=== PATIENT | female | born 1935 | race Caucasian/White ===

== ENCOUNTER → 2017-03-29 | Outpatient (REF) | payer MEDICARE, OTHER ==
[~2017-03-29] MED LIST: CELE-1 PO; CYCL1DRO6 OP; DEN60I SUBQ; LEVO100T95 PO; LEVO50TA80 PO; NIT3 SL; NITR0.4T3 SL
== END ==
LOC: ZZSENDIN 12:00
PROVIDERS: ATTEND Urology
DX: C67.9 Malignant neoplasm of bladder, unspecified (principal)
CPT/HCPCS: 88108

== ENCOUNTER → 2017-07-19 | Outpatient (CLI) | payer MEDICARE, OTHER | LOC: LAB 14:39 | PROVIDERS: ATTEND Urology | DX: N39.0 Urinary tract infection, site not specified (principal); R82.79 Other abnormal findings on microbiological examination of urine | CPT/HCPCS: 81001; 87077; 87088; 87186 ==

== ENCOUNTER 2018-10-11 10:45 | Emergency (ER) | payer MEDICARE, OTHER ==
--- NOTE | 2018-10-11 11:11 | ER Report ---
History and Physical Time Seen By MD: 11:06 Hx. of Stated Complaint: back pain HPI/ROS CHIEF COMPLAINT: back pain, SOB HISTORY OF PRESENT ILLNESS: Patient is an 83 year old female presenting with left sided low back pain that started on monday, a shingles outbreak on monday which she was seen at urgent care for and given Valtrex for and left lower lung pain on inspiration that she has had for 1 month. patient also identifies that she has unintentionally lost ~9lbs in the last 2 months and has been more fatigued than usual. Has a hx of endometrial CA in 2005 which resolved with a hysterectomy, and 3 bouts of bladder cancer the last time being 18 months ago. She has check ups for this every 6 months, last one being 3 months ago with no new acute abnormalities. Regarding the lung pain, patient has SOB with climbing stairs, rhinorrhea and clear productive cough for about 1 month. Has not taken anything for this. REVIEW OF SYSTEMS: Respiratory: No cough, dyspnea, SOB Cardiovascular: No chest pain, no palpitations. Gastrointestinal: No vomiting, no abdominal pain. Musculoskeletal: left sided back pain. Allergies: Coded Allergies: Opioids - Morphine Analogues (Verified Allergy, Unknown, 10/11/18) ciprofloxacin (Verified Allergy, Unknown, tendonitis, 10/11/18) gentian jessica (Verified Allergy, Unknown, hypoactivity, 10/11/18) hydroxychloroquine (Verified Allergy, Unknown, digestive tract problems, 10/11/18) levofloxacin (Verified Allergy, Unknown, Tendonitis, 10/11/18) Uncoded Allergies: All opiods (Allergy, Severe, 11/04/16) Home Meds Active Scripts Gabapentin (GABAPENTIN) 300 Mg Capsule, 300 MG PO DIRECTED for 7 Days, #12 CAPSULE Take one pill for the first day. Then take one tablet twice a day for 5 days. Then 1 tablet once a day until gone. Prov:THANGELIEZER PLAN NURSE 10/11/18 Reported Medications Zolpidem Tartrate (AMBIEN) 5 Mg Tablet, 1 TAB PO QHS PRN for SLEEP, TAB 10/11/18 Melatonin (MELATONIN) 1 Mg/1 Ml Liquid, 1 MG PO PRN for SLEEP 10/11/18 Melatonin (MELATONIN) 1 Mg Tablet, 1 MG PO HS 10/11/18 Denosumab (PROLIA) 60 Mg/1 Ml Injs, 60 MG SUBQ DIRECTED 10/11/18 Lactobacillus Combination No.4 (PROBIOTIC) 1 Each Capsule, 1 EACH PO QDAY, CAPSULE 10/11/18 Wheat Dextrin (BENEFIBER) 1 Each Powd.pack, 1 EACH PO BID PRN for CONSTIPATION 10/11/18 [place]-3 Fatty Acids/Fish Oil (FISH OIL 1,000 MG SOFTGEL) 1 Each Capsule, 4 EACH PO QDAY, CAPSULE 10/11/18 Valacyclovir Hcl (VALTREX) 1,000 Mg Tablet, 1000 MG PO TID 10/11/18 Cyclosporine (RESTASIS) 1 Each Droperette, 1 EACH OP BID 11/04/16 Denosumab (PROLIA) 60 Mg/1 Ml Injs, 60 MG SUBQ [id number] 11/04/16 Nitroglycerin (NITROGLYCERIN) 0.4 Mg Tab.subl, 1 TAB SL Q5MIN 11/04/16 Celecoxib (CELEBREX) 200 Mg Capsule, 1 CAP PO DAILY PRN for PAIN, CAPSULE 11/04/16 Levothyroxine Sodium (SYNTHROID) 50 Mcg Tablet, 1-2 TAB PO DAILY, TAB Take 1 tab six days per week and 2 tabs one day per week. 11/04/16 Past Medical/Surgical History Past medical history of IBS, GERD, Diverticulitis, interstitial cystitis, post menopausal osteoporosis, compression fractures, lumbar spinal stenosis, back pain, peripheral neuropathy, cataracts, macular degeneration, hypothyroid, prediabetes, herpes simplex, recurrent shingles, depression/anxiety, ademocarcinoma endometrium, vesico ureteral reflux, Surgical history of aspiration pancreatic cyst, appendectomy, rectocele repair, LEROY BSO 2006, tibal ligation, right wrist ganglion cyst, bilat cataract extraction no pertinent family history Reviewed Nurses Notes: Yes Smoking Status: Never Smoker Constitutional Vital Sign - Last 24 Hours 10/11/18 10/11/18 10/11/18 10/11/18 10:45 10:50 11:00 11:00 Temp 97.5 Pulse 69 74 Resp 12 B/P (MAP) 176/82 (113) 176/82 155/78 (103) Pulse Ox 95 O2 Delivery Room Air 10/11/18 10/11/18 10/11/18 10/11/18 11:15 11:30 11:45 12:00 Pulse 70 67 B/P (MAP) 152/82 (105) 148/67 (94) Pulse Ox 95 95 10/11/18 10/11/18 10/11/18 10/11/18 12:05 12:35 12:38 12:43 Pulse 69 68 67 Resp 10 B/P (MAP) 159/70 (99) Pulse Ox 93 93 10/11/18 10/11/18 10/11/18 10/11/18 13:00 13:13 13:30 13:43 Pulse 67 65 B/P (MAP) 147/79 (101) 152/77 (102) Pulse Ox 92 92 10/11/18 10/11/18 10/11/18 13:50 13:55 14:00 Pulse 65 B/P (MAP) 159/70 (99) 151/77 (101) Pulse Ox 92 Physical Exam General Appearance: The patient is alert, has no immediate need for airway protection and no current signs of toxicity. Eyes: Pupils equal and round no injection. Respiratory: Chest is non tender, lungs are clear to auscultation. Cardiac: regular rate and rhythm Gastrointestinal: Abdomen is soft and non tender, no masses, bowel sounds normal. Musculoskeletal: Neck: Neck is supple and non tender. Extremities have full range of motion, left flank tenderness to left lumbar spine Skin: shingled on left flank DIFFERENTIAL DIAGNOSIS: After history and physical exam differential diagnosis was considered for Pneumonia, Shingles, Cancer, acute on chronic back pain Medical Decision Making Data Points Result Diagram: 10/11/18 1244 10/11/18 1244 Laboratory Hematology Test 10/11/18 12:44 White Blood Count 3.8 k/uL (4.5-11.0) L Red Blood Count 4.16 M/uL (4.17-5.56) L Hemoglobin 13.7 g/dL (12.0-16.0) Hematocrit 41.3 % (34.0-47.0) Mean Corpuscular Volume 99.3 fL (80.0-96.0) H Mean Corpuscular Hemoglobin 32.9 pg (26.0-33.0) Mean Corpuscular Hemoglobin Concent 33.2 g/dL (32.0-36.0) Red Cell Distribution Width 13.7 % (11.5-14.5) Platelet Count 273 K/uL (150-450) Mean Platelet Volume 9.4 fL (7.2-11.1) Neutrophils (%) (Auto) 65.4 % (39.4-72.5) Lymphocytes (%) (Auto) 15.7 % (17.6-49.6) L Monocytes (%) (Auto) 15.2 % (4.1-12.4) H Eosinophils (%) (Auto) 2.6 % (0.4-6.7) Basophils (%) (Auto) 0.8 % (0.3-1.4) Nucleated RBC Relative Count (auto) 0.0 /100WBC Neutrophils # (Auto) 2.5 K/uL (2.0-7.4) Lymphocytes # (Auto) 0.6 K/uL (1.3-3.6) L Monocytes # (Auto) 0.6 K/uL (0.3-1.0) Eosinophils # (Auto) 0.1 K/uL (0.0-0.5) Basophils # (Auto) 0.0 K/uL (0.0-0.1) Nucleated RBC Absolute Count (auto) 0.00 K/uL Chemistry Test 10/11/18 12:44 Sodium Level 139 mmol/L (137-145) Potassium Level 3.5 mmol/L (3.5-5.0) Chloride Level 103 mmol/L (98-107) Carbon Dioxide Level 27 mmol/L (22-31) Blood Urea Nitrogen 18 mg/dl (7-18) Creatinine 0.80 mg/dl (0.52-1.04) Glomerular Filtration Rate Calc > 60.0 Random Glucose 93 mg/dl (75-110) Calcium Level 9.8 mg/dl (8.4-10.2) Total Bilirubin 0.9 mg/dl (0.2-1.3) Aspartate Amino Transf (AST/SGOT) 44 U/L (0-35) Alanine Aminotransferase (ALT/SGPT) 45 U/L (0-56) Alkaline Phosphatase 79 U/L (0-126) Troponin I < 0.012 ng/ml B-Type Natriuretic Peptide 93 pg/ml (0-100) Total Protein 7.8 g/dl (6.3-8.2) Albumin 4.4 g/dl (3.5-5.0) Urinalysis Test 10/11/18 10:48 Urine Color Yellow Urine Clarity Clear Urine pH 6.0 pH (4.8-9.5) Urine Specific [place] 1.011 Urine Protein Negative mg/dL (NEGATIVE) Urine Glucose (UA) Negative mg/dL (NEGATIVE) Urine Ketones Negative mg/dL (NEGATIVE) Urine Blood Negative (NEGATIVE) Urine Nitrite Negative (NEGATIVE) Urine Bilirubin Negative (NEGATIVE) Urine Urobilinogen Negative mg/dL (0.2-1.9) Urine Leukocyte Esterase Trace (NEGATIVE) Urine RBC <1 /HPF (0-2/HPF) Urine WBC <1 /HPF (0-5/HPF) Urine Squamous Epithelial Cells Many /LPF (</=FEW) Urine Bacteria Few /HPF (NONE-FEW) Urine Mucus None /HPF (NONE-FEW) EKG/Imaging EKG Interpretation 12 lead EKG: Rhythm: normal sinus rhythm [place]: normal QRS: normal ST segments: normal Imaging EXAMINATION: PA and Lateral Chest 10/11/2018 11:39 AM HISTORY: RESP DISTRESS COMPARISON: None FINDINGS: Cardiomediastinal contours: Normal Lungs and pleura: Lungs are hyperinflated likely emphysematous. Small dense nodule laterally in the left lung at the level of the AP window presumably is a granuloma based on density for size. No significant acute pulmonary or pleural process evident. Bones/soft tissues: Degenerative changes in the spine. Dextroscoliotic thoracolumbar curvature. Inferior endplate wedging at T12 and more mildly T11 as well as subtly the superior endplate at T8 may be chronic. 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 IMPRESSION: No significant acute finding in the chest. Lungs are hyperinflated and probably emphysematous. I am having the [facility]'s call the absence of acute findings to ELIEZER DESIR for me at 10/11/2018 1:53 PM Report Dictated By: Mack Elizabeth MD at 10/11/2018 1:50 PM Report E-Signed By: Mack Elizabeth MD at 10/11/2018 1:53 PM WSN:[email or web address] ED Course/Re-evaluation ED Course Patient presented to ED with back pain that started on monday before she was diagnosed with shingles on monday. As well as chest pain with inspiration for t he last month. Associated dyspnea and fatigue. States she had a cough about a month ago but this has resolved. Physical exam was benign. Differential diagnoses considered. CBC, CMP, UA, BNP, Troponin, EKG, Chest XR ordered. No acute abnormalities found. Patient understood that back pain and pain with inspiration is likely due to her shingles outbreak on her left flank area. Instructed to continue her Valtrex that she got on monday and begin taking 300mg Gabapentin once daily for 1 day and twice daily for 5 days then 1 tab daily until gone for the pain due to shingles. Patient understood instructions and was discharged home. Decision to Disposition Date: Oct 11, 2018 Decision to Disposition Time: 14:09 Depart Departure Latest Vital Signs Vital Signs Date Time Temp Pulse Resp B/P (MAP) Pulse Ox O2 Delivery O2 Flow Rate FiO2 10/11/18 14:00 151/77 (101) 10/11/18 13:55 65 92 10/11/18 12:05 10 10/11/18 11:00 97.5 Room Air Impression: Primary Impression: Shingles Condition: Improved Disposition: HOME OR SELF-CARE Referrals: SULY STRE[facility] MD (PCP) New Scripts Gabapentin (GABAPENTIN) 300 Mg Capsule 300 MG PO DIRECTED for 7 Days, #12 CAPSULE Take one pill for the first day. Then take one tablet twice a day for 5 days. Then 1 tablet once a day until gone. Prov: ELIEZER DESIR 10/11/18 Patient Instructions: Shingles (ED) Additional Instructions: Take medication as instructed. Rest, fluids. Continue to take Valtrex. Follow up with primary care physician. Return to ED if pain suddenly worsens or sudden weakness occurs. Problem Qualifiers Primary Impression: Shingles Herpes zoster complications: without complications Qualified Codes: B02.9 - Zoster without complications ELIEZER DESIR Oct 11, 2018 11:11
[2018-10-11] MEDS ORDERED: LACT1CAP6 PO (11:28)
[2018-10-11] MEDS ORDERED: ZOLP-1 PO (11:28)
[2018-10-11] MEDS ORDERED: DEN60I SUBQ (11:28)
[2018-10-11] MEDS ORDERED: MELA1TAB23 PO (11:28)
[2018-10-11] MEDS ORDERED: MELA1LIQ PO (11:28)
[2018-10-11] MEDS ORDERED: OMEG-23 PO (11:28)
[2018-10-11] MEDS ORDERED: WHEA1POW10 PO (11:28)
[2018-10-11] MEDS ORDERED: VALA100062 PO (11:28)
--- NOTE | 2018-10-11 12:13 | EKG ---
FACILITY: [facility] [place] PATIENT NAME: VICTOR MANUEL ARROYO : [id number] MR: [id number] V: [id number] EXAM DATE: ORDERING PHYSICIAN: ELIEZER DESIR TECHNOLOGIST: Test Reason : SOB Blood Pressure : / mmHG Vent. Rate : 066 BPM Atrial Rate : 066 BPM P-R Int : 156 ms QRS Dur : 082 ms QT Int : 414 ms P-R-T Axes : 085 059 075 degrees QTc Int : 434 ms Normal sinus rhythm Normal ECG No previous ECGs available Confirmed by ISRRAEL CHOWDHURY ([id number]) on 10/12/2018 3:30:41 AM Referred By: Confirmed By:ISRRAEL CHOWDHURY
[2018-10-11 13:12] LABS: PLATELET COUNT, AUTOMATED 273 K/uL (150-450)
[2018-10-11 14:00] VITALS: BP 151/77
--- NOTE | 2018-10-11 14:02 | RADIOLOGY IMAGING REPORT ---
FACILITY: [facility] PATIENT NAME: Karolyn Thomas : 1935 MR: [id number] V: [id number] EXAM DATE: ORDERING PHYSICIAN: ELIEZER DESIR TECHNOLOGIST: Location: [facility] Patient: Karolyn Thomas : 1935 Visit/Account:[id number] Date of Sevice: 10/11/2018 EXAMINATION: PA and Lateral Chest 10/11/2018 11:39 AM HISTORY: RESP DISTRESS COMPARISON: None FINDINGS: Cardiomediastinal contours: Normal Lungs and pleura: Lungs are hyperinflated likely emphysematous. Small dense nodule laterally in the left lung at the level of the AP window presumably is a granuloma based on density for size. No sign ificant acute pulmonary or pleural process evident. Bones/soft tissues: Degenerative changes in the spine. Dextroscoliotic thoracolumbar curvature. Inf erior endplate wedging at T12 and more mildly T11 as well as subtly the superior endplate at T8 may b e chronic. 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 IMPRESSION: No significant acute finding in the chest. Lungs are hyperinflated and probably emphysem atous. I am having the [facility]'s call the absence of acute findings to ELIEZER DESIR for me at 10/11/2018 1:53 PM Report Dictated By: Mack Elizabeth MD at 10/11/2018 1:50 PM Report E-Signed By: Mack Elizabeth MD at 10/11/2018 1:53 PM WSN:[email or web address]
[2018-10-11] MEDS ORDERED: GABA-549 PO (14:19)
== END 2018-10-11 14:25 | disposition home or self-care (01) ==
LOC: ER 11:13
DX: B02.9 Zoster without complications (principal)
CPT/HCPCS: 71046; 81001; 82040; 82247; 82310; 82374; 82435; 82565; 82947; 83880; 84075; 84132; 84155; 84295; 84450; 84460; 84484; 84520; 85025; 93005; 99284